=== PATIENT | male | born 1995 | race Asian ===

== ENCOUNTER 2023-06-27 12:09 | Emergency (ER) | payer MEDICAID ==
[~2023-06-27] VITALS: Ht 175.3 cm; Wt 84.1 kg
[2023-06-27 12:45] VITALS: TEMP 98.4
[2023-06-27] MEDS ORDERED: ITRACONAZOLE 100 MG CAPSULE PO ONE (15:00)
[2023-06-27] MEDS ORDERED: DOXYCYCLINE HYCLATE 100 MG TABLET PO ONE (15:00)
[2023-06-27] MEDS ORDERED: ITRA100C24 PO (16:00)
[2023-06-27] MEDS ORDERED: DOXY-354 PO (16:00)
[2023-06-27] MEDS ORDERED: ACET-3385 PO (16:07)
[2023-06-27] MEDS ORDERED: IBUP-1492 PO (16:07)
[2023-06-27 16:15] VITALS: BP 141/79; PULSE 82; RESP 16
== END 2023-06-27 17:00 | disposition home or self-care (01) ==
LOC: EMS 12:10
DX: L03.012 Cellulitis of left finger (principal)
CPT/HCPCS: 99283